=== PATIENT | female | born 1960 | race Two or more races ===

== ENCOUNTER → 2021-02-14 | Outpatient (CLI) | payer BC ==
[~2021-02-14] MED LIST: ACET-1600; ACET-1600 PO; ALBU8.5H8 INH; BUDE10.2 INH; CHOL10003 PO; CLOB50SO2 TP; CLOP75TA52 PO; DUPI300P INJ; ESOM40CA; HYDR-2995 PO; HYDROCHLOROTH12.5 MG PO; IPRA3AMP30 NEB; IRBE150T9 PO; LEVO5TAB29 PO; METF-365; MONT10TA6; ONDA4TAB7 PO; PANT20TA4 PO; POTA10TA6 PO; PRED10TA PO; PRED10TA14; RANI25VI2; SUMA25TA3; TRIA1CAP3 PO; VERA300C6 PO; [UNRECOGNIZED DRUG - CODE] INH; [UNRECOGNIZED DRUG - CODE] TP; atarax; red clover PO
[2021-02-14 10:49] LABS: ALANINE AMINOTRANSFERASE 65 U/L (12-78); ALBUMIN 3.8 g/dL (3.4-5.0); ANION GAP 8 mmol/L (5-15); CALCIUM 9.6 mg/dL (8.5-10.1); CHLORIDE 101 mmol/L (98-107); CREATININE 0.68 mg/dL (0.55-1.02)
[2021-02-14 10:52] LABS: ALKALINE PHOSPHATASE 155 U/L (45-117); BILIRUBIN,TOTAL 0.8 mg/dL (0.2-1.0); TOTAL PROTEIN 7.5 g/dL (6.4-8.2)
== END | disposition home or self-care (01) ==
LOC: STAR 08:34
PROVIDERS: ATTEND Internal Medicine Geriatric Medicine
DX: Z01.818 Encounter for other preprocedural examination (principal); R14.0 Abdominal distension (gaseous); R13.10 Dysphagia, unspecified; K44.9 Diaphragmatic hernia without obstruction or gangrene; R11.0 Nausea; R00.0 Tachycardia, unspecified; Z20.822 Contact with and (suspected) exposure to COVID-19
CPT/HCPCS: 36415; 80053; 93005; U0003; U0005

== ENCOUNTER 2021-02-20 09:33 | Day surgery (SDC) | payer BC ==
[~2021-02-20] VITALS: Ht 147.3 cm; Wt 96.9 kg
[2021-02-20] MEDS ORDERED: CHLORHEXIDINE 15 ML UDC ONE (09:56)
[2021-02-20] MEDS ORDERED: HYDROCORTISONE 100 MG INJ. ONE (10:13)
[2021-02-20] MEDS ORDERED: FENTANYL PF 100 MCG/2ML ONE (10:16)
[2021-02-20 10:23] VITALS: BP 156/94
[2021-02-20] MEDS ORDERED: ONDANSETRON 2MG/ML, 2ML ONE (10:25)
[2021-02-20] MEDS ORDERED: PROPOFOL 10 MG/ML, 20ML ONE (10:25)
[2021-02-20] MEDS ORDERED: LIDOCAINE 1%, 20ML ONE (10:25)
[2021-02-20] MEDS ORDERED: LABETALOL 5MG/ML, 20ML IV PRN (10:30)
[2021-02-20] MEDS ORDERED: PROMETHAZINE 25 MG/ML, 1ML IVPush PRN (10:30)
[2021-02-20] MEDS ORDERED: hydrALAzine 20 MG/ML, 1ML IV PRN (10:30)
[2021-02-20] MEDS ORDERED: OXYcodone 5 MG/5 ML ORAL.SOL UDC PO PRN (10:30)
[2021-02-20] MEDS ORDERED: LACTATED RINGERS 1,000 ML IV SCH (10:30)
[2021-02-20] MEDS ORDERED: CHLORHEXIDINE 15 ML UDC PO ONE (10:30)
[2021-02-20] MEDS ORDERED: DIPHENHYDRAMINE 50 MG/ML, 1ML IVPush PRN (10:30)
[2021-02-20] MEDS ORDERED: METOPROLOL 1 MG/ML, 5ML IV PRN (10:30)
[2021-02-20] MEDS ORDERED: EPHEDRINE 50 MG/ML, 1ML IVPush PRN (10:30)
[2021-02-20] MEDS ORDERED: ONDANSETRON 2MG/ML, 2ML IVPush PRN (10:30)
[2021-02-20] MEDS ORDERED: ACETAMINOPHEN 325 MG TABLET PO PRN (10:30)
[2021-02-20] MEDS ORDERED: METOCLOPRAMIDE 5 MG/ML, 2ML IVPush PRN (10:30)
[2021-02-20] MEDS ORDERED: DIAZEPAM 5 MG/ML, 2ML IVPush PRN (10:30)
[2021-02-20] MEDS ORDERED: FENTANYL PF 100 MCG/2ML IV PRN (10:30)
[2021-02-20] MEDS ORDERED: HALOPERIDOL 5 MG/ML IV PRN (10:30)
== END 2021-02-20 12:20 | disposition home or self-care (01) ==
LOC: OUT 09:33
PROVIDERS: ATTEND Internal Medicine Geriatric Medicine
DX: Z12.11 Encounter for screening for malignant neoplasm of colon (principal); R13.12 Dysphagia, oropharyngeal phase; K57.30 Diverticulosis of large intestine without perforation or abscess without bleeding; D12.4 Benign neoplasm of descending colon; K44.9 Diaphragmatic hernia without obstruction or gangrene; J44.9 Chronic obstructive pulmonary disease, unspecified; I10 Essential (primary) hypertension; E11.9 Type 2 diabetes mellitus without complications; I25.10 Atherosclerotic heart disease of native coronary artery without angina pectoris; I25.2 Old myocardial infarction; G47.33 Obstructive sleep apnea (adult) (pediatric); Z79.02 Long term (current) use of antithrombotics/antiplatelets; Z79.899 Other long term (current) drug therapy; Z88.0 Allergy status to penicillin; Z88.8 Allergy status to other drugs, medicaments and biological substances; Z91.040 Latex allergy status
CPT/HCPCS: 43235; 45380; 88305; J1720; J2405; J2704; J3010; J7120